=== PATIENT | male | born 1960 | race Caucasian/White ===

== ENCOUNTER 2018-12-23 08:49 | Day surgery (SDC) | payer OTHER ==
[~2018-12-23] VITALS: Ht 172.7 cm; Wt 122.4 kg
[~2018-12-23 08:49] MED LIST: GLIP5 PO; LISI5 PO; METF500 PO; Prilosec Otc20 MG PO; SILDENAFIL20 MG PO
--- NOTE | 2018-12-23 10:07 | NUR ---
12/23/18 1007 Kate Mckenna SIMETHICONE USED DURING PROCEDURE.
--- NOTE | 2018-12-23 10:09 | NUR ---
12/23/18 1009 Kate Mckenna DURING PRE-OP, PT STS HE WAS PLANNING ON DRIVING TO [place] THIS EVENING TO CATCH A FLIGHT IN THE MORNING. THIS NURSE AND [facility] EDUCATED PT ON INABILITY TO DRIVE FOR 24HOURS POST PROCEDURE. PT ASKED IF HE WOULD BE ABLE TO DRIVE HIMSELF IN THE MORNING, LEAVING APPROX [phone]. THIS NURSE REINFORCED EDUCATION THAT PT IS NOT ABLE TO DRIVE FOR 24 HOURS BECAUSE OF THE MEDICATION IN HIS SYSTEM. PT AGREES AND STATES THAT HIS WILL DRIVE HIM UP TONIGHT. DR. MOIRA COLIN.
== END 2018-12-23 11:00 | disposition home or self-care (01) ==
LOC: ORSCSDS 08:49
PROVIDERS: Student in an Organized Health Care Education/Training Program
PROC: 0DJD8ZZ Inspection of Lower Intestinal Tract, Via Natural or Artificial Opening Endoscopic (ICD-10-PCS; principal; 2018-12-23 10:00)
DX: Z12.11 Encounter for screening for malignant neoplasm of colon (principal); I10 Essential (primary) hypertension; G47.33 Obstructive sleep apnea (adult) (pediatric); E11.9 Type 2 diabetes mellitus without complications; Z98.84 Bariatric surgery status; E66.01 Morbid (severe) obesity due to excess calories; Z68.41 Body mass index [BMI] 40.0-44.9, adult; Z79.84 Long term (current) use of oral hypoglycemic drugs; Z79.899 Other long term (current) drug therapy
CPT/HCPCS: 82947; J2704; J7120

== ENCOUNTER → 2020-10-03 | Outpatient (CLI) | payer OTHER ==
[2020-10-03 10:06] LABS: Source, Urine Clean Catch
[2020-10-03 12:33] LABS: Appearance, Urine Clear (Clear); Bilirubin, Urine Neg (Neg); Blood, Urine Neg (Neg); Color, Urine Yellow (P-Yellow); Glucose Qualitative, Urine 1+ (Neg); Ketones, Urine Neg (Neg); Leukocyte Esterase, Urine 1+ (Neg); Nitrite, Urine Neg (Neg); Protein, Urine 1+ (Neg); Specific Gravity, Urine 1.025 (1.003-1.022); Urobilinogen, Urine NORM (Normal)
[2020-10-03 13:04] LABS: Red Blood Cells, Urine 0-2 /hpf (0-2); Squamous Epithelial Cells Rare /hpf (Few); White Blood Cells, Urine 0-2 /hpf (0-5)
[2020-10-03 13:05] LABS: Bacteria Few /hpf
[2020-10-03 13:08] LABS: Calcium Oxalate Crystals Mod /hpf
== END | disposition home or self-care (01) ==
LOC: LAB SHORT 09:00 → LAB 09:00
PROVIDERS: Nurse Practitioner Family
DX: R39.11 Hesitancy of micturition (principal); R30.0 Dysuria
CPT/HCPCS: 81001; 87086